=== PATIENT | female | born 1975 | race Caucasian/White ===

== ENCOUNTER 2017-12-10 09:18 | Emergency (ER) | END 2017-12-10 12:10 | disposition home or self-care (01) ==

== ENCOUNTER 2017-12-16 13:50 | Emergency (ER) | END 2017-12-16 15:21 | disposition home or self-care (01) ==

== ENCOUNTER 2018-11-11 11:10 | Emergency (ER) | payer MEDICAID ==
[~2018-11-11] VITALS: Wt 62.3 kg
[~2018-11-11 11:10] MED LIST: CEPH-443 PO; CYCL10TA7 PO; FERR325C PO; IBUP-1542 PO; IBUP-1544 PO; NAPR-985 PO; PERCOCET PO; PHEN-538 PO; PRENAT PO
[2018-11-11 11:12] VITALS: BP 120/80; PULSE 80; RESP 20
[2018-11-11] MEDS ORDERED: HYDR-843 PO (11:59)
[2018-11-11] MEDS ORDERED: ACET500C5 PO (11:59)
[2018-11-11] MEDS ORDERED: FLUT9.9S NASAL (11:59)
[2018-11-11] MEDS ORDERED: AZIT250T PO (11:59)
--- NOTE | 2018-11-11 12:13 | ERD ---
ER Documentation Chief Complaint Chief Complaint jerel henry frontal pressure HPI 42-year-old female patient with no significant past medical history presents to ED complaining of a pressure-like sensation in her sinuses that started for about 2.5 weeks. States that she is tried taking Benadryl, Tylenol with slight relief however still feels like her nose is congested. Denies any chest pain, shortness of breath, nausea, vomiting, diarrhea, neck stiffness. Patient is eating appropriately, tolerating oral intake, has normal bowel movements and good urine output. Also reports that she has some itchiness to her skin, states that she did have some rashes however it has now resolved. States that she tried taking Benadryl and it helped slightly. ROS All systems reviewed and are negative except as per history of present illness. Medications Home Meds Active Scripts Acetaminophen* (Tylophen*) 500 Mg Capsule, 1 CAP PO Q6H PRN for PAIN AND OR ELEVATED TEMP, #20 CAP Prov:ABRAHAM JAMES PA-C 11/11/18 Fluticasone Propionate (Flonase Allergy Relief) 9.9 Ml [place].susp, 1 SPRAY NASAL BID, #1 BOTTLE TO EACH NOSTRIL Prov:ABRAHAM JAMES PA-C 11/11/18 Azithromycin* (Zithromax*) 250 Mg Tablet, 250 MG PO .ZPACK DIRECTED, #6 TAB TAKE 500 MG (2 TABS) THE FIRST DAY THEN 250 MG (1 TAB) DAYS 2-5 Prov:ABRAHAM JAMES PA-C 11/11/18 Hydroxyzine Hcl* (Hydroxyzine Hcl*) 25 Mg Tablet, 25 MG PO Q8H PRN for ITCHING, #30 TAB Prov:ABRAHAM JAMES PA-C 11/11/18 Phenazopyridine Hcl* (Pyridium*) 200 Mg Tab, 200 MG PO TID PRN for URINARY PAIN, #6 TAB Prov:CHAVO MARTINEZ MD 12/16/17 Cephalexin* (Keflex*) 500 Mg Capsule, 500 MG PO QID for 5 Days, CAP Prov:CHAVO MARTINEZ MD 12/16/17 Ibuprofen* (Motrin*) 600 Mg Tab, 600 MG PO Q6H PRN for PAIN AND OR ELEVATED TEMP, #30 TAB Prov:ROSALBA OLIVER 12/10/17 Cyclobenzaprine Hcl* (Cyclobenzaprine Hcl*) 10 Mg Tablet, 10 MG PO Q12 PRN for MUSCLE SPASMS, #20 TAB Prov:ROSALBA OLIVER 12/10/17 Naproxen* (Naprosyn*) 500 Mg Tablet, 500 MG PO BID PRN for PAIN AND/OR INFLAMMATION, #30 TAB Prov:BRADEN GEE PA-C 05/23/16 Oxycodone Hcl/Acetaminophen (Percocet) 1 Tab Tab, 2 TAB PO Q4H PRN for PAIN LEVEL 6-10, #30 TAB 0 Refills Prov:SEPIDEH GILLIS MD 09/24/15 Ibuprofen* (Ibuprofen*) 800 Mg Tab, 800 MG PO Q8, #20 TAB 0 Refills Prov:SEPIDEH GILLIS MD 09/24/15 Reported Medications Ferrous Sulfate (Iron) 325 Mg Capsr, 325 MG PO DAILY 05/20/15 Multivit/Min/Fol Ac/Iron/Pren* ( S*) 1 Tab Tab, 1 TAB PO DAILY, TAB 05/20/15 Allergies Allergies: Coded Allergies: Penicillins (Verified Allergy, Unknown, 05/23/16) PMhx/Soc History of Surgery: Yes (csect, gallbladder, appy) Anesthesia Reaction: No Hx Neurological Disorder: No Hx Respiratory Disorders: No Hx Cardiac Disorders: No Hx Psychiatric Problems: No Hx Miscellaneous Medical Probl: No Hx Alcohol Use: No Hx Substance Use: No Hx Tobacco Use: No Smoking Status: Never smoker FmHx Family History: No diabetes, No coronary disease Physical Exam Vitals Vital Signs Date Temp Pulse Resp B/P (MAP) Pulse Ox O2 O2 Flow FiO2 Time Delivery Rate 11/11/18 98.3 80 20 120/80 98 11:12 (93) Physical Exam Const: [id number], well-nourished. In no acute distress. Head: Atraumatic, normocephalic. No hematoma. No seth sign. Tenderness to palpation of the bilateral maxillary sinuses. Eyes: Normal Conjunctiva without injection. No purulent discharge. PERRLA. EOMI ENT: Normal external ear. Ear canal without erythema. Tympanic membrane pearly hanson without effusion or bulging. Nasal canal clear with normal turbinates. Moist oropharynx without tonsillar exudates. Non-erythematous pharynx. Uvula midline. No drooling. No trismus. Neck: No cervical midline tenderness. Full range of motion. No meningismus. No cervical lymphadenopathy. No JVD. Resp: Clear to auscultation bilaterally. No wheezing, rhonchi, rales, or crackles. No accessory muscle use. No retractions. Cardio: Regular rate and rhythm. No murmurs, rubs or gallops. Abd: Soft, non tender, non distended. Normal bowel sounds. No palpable masses. No rebound tenderness. No guarding. Negative McBurney's Point. Negative Briggs's Sign. Skin: Normal skin turgor. No petechiae or rashes Back: No midline tenderness. No CVA tenderness. Ext: No cyanosis, or edema. Distal pulses intact bilaterally. Neur: Awake and alert. Normal gait. Normal coordination. Cranial Nerves II- VII intact. Normal finger to nose. Muscle strength 5/5. Sensation intact. Psych: Normal Mood and Affect Procedures/MDM 42-year-old female patient with no significant past medical history presents ED complaining of sinus pressure that started about 2 and half weeks ago associated with nasal congestion. Patient is afebrile and nontoxic-appearing. Patient likely has sinusitis patient has tenderness palpation of the maxillary sinuses. Low suspicion for intracranial bleed, subarachnoid hemorrhage, meningitis, TIA, stroke, subdural hematoma, epidural hematoma, or other emergent conditions. Patient currently does not have any hives. Low suspicion for anaphylaxis, scabies, SJS/TEN, TSS, Lyme's Disease, syphilis, RMSF, shingles, d isseminated gonorrhea chlamydia, DIC, TTP, ITP, erythema multiforme, sepsis, cellulitis, necrotizing fasciitis, gangrene, meningococcemia, allergic contact dermatitis, urticaria, eczema, tinea infection, or other emergent conditions. Diagnosis: Sinus Pressure, Itchy skin, Nasal Congestion Discharge medications: Tylenol, Flonase, Zithromax Follow up with primary care physician in 1-2 days. Instructed patient to return to the ED sooner for any worsening symptoms. Patient's questions were answered. Patient is hemodynamically stable. Patient understood and agreed with discharge plan. Patient discharged stable. Disclaimer: Inadvertent spelling and grammatical errors are likely due to EHR/dictation software use and do not reflect on the overall quality of patient care. Also, please note that the electronic time recorded on this note does not necessarily reflect the actual time of the patient encounter. Departure Diagnosis: Primary Impression: Sinus pressure Additional Impressions: Itchy skin Nasal congestion Condition: Stable Patient Instructions: Hives, Sinusitis, Abx Tx Referrals: [facility] YOU HAVE RECEIVED A MEDICAL SCREENING EXAM AND THE RESULTS INDICATE THAT YOU DO NOT HAVE A CONDITION THAT REQUIRES URGENT TREATMENT IN THE EMERGENCY DEPARTMENT. FURTHER EVALUATION AND TREATMENT OF YOUR CONDITION CAN WAIT UNTIL YOU ARE SEEN IN YOUR DOCTORS OFFICE WITHIN THE NEXT 1-2 DAYS. IT IS YOUR RESPONSIBILITY TO MAKE AN APPOINTMENT FOR FOLOW-UP CARE. IF YOU HAVE A PRIMARY DOCTOR --you should call your primary doctor and schedule an appointment IF YOU DO NOT HAVE A PRIMARY DOCTOR YOU CAN CALL OUR PHYSICIAN REFERRAL HOTLINE AT IF YOU CAN NOT AFFORD TO SEE A PHYSICIAN YOU CAN CHOSE FROM THE FOLLOWING [facility] [address] [facility] [address] [facility] [address] [facility] [address] [facility] [address] [facility] [facility] [address] [facility]. [facility] YOU HAVE RECEIVED A MEDICAL SCREENING EXAM AND THE RESULTS INDICATE THAT YOU DO NOT HAVE A CONDITION THAT REQUIRES URGENT TREATMENT IN THE EMERGENCY DEPARTMENT. FURTHER EVALUATION AND TREATMENT OF YOUR CONDITION CAN WAIT UNTIL YOU ARE SEEN IN YOUR DOCTORS OFFICE WITHIN THE NEXT 1-2 DAYS. IT IS YOUR RESPONSIBILITY TO MAKE AN APPOINTMENT FOR FOLOW-UP CARE. IF YOU HAVE A PRIMARY DOCTOR --you should call your primary doctor and schedule and appointment IF YOU DO NOT HAVE A PRIMARY DOCTOR YOU CAN CALL OUR PHYSICIAN REFERRAL HOTLINE AT . IF YOU CAN NOT AFFORD TO SEE A PHYSICIAN YOU CAN CHOSE FROM THE FOLLOWING [facility] IN[facility]: [facility] [address] [place] [address] [facility] [address] [place] [address] [facility] [address] [place] [address] [facility] Additional Instructions: Call your primary care doctor TOMORROW for an appointment during the next 2-3 days.See the doctor sooner or return here if your condition worsens before your appointment time. ABRAHAM JAMES PA-C Nov 11, 2018 12:13
== END 2018-11-11 12:15 | disposition home or self-care (01) ==
LOC: FTE 11:10
DX: J32.9 Chronic sinusitis, unspecified (principal); L29.9 Pruritus, unspecified
CPT/HCPCS: 99283

== ENCOUNTER 2019-03-27 13:26 | Emergency (ER) | payer MEDICAID ==
[~2019-03-27] VITALS: Ht 154.9 cm; Wt 63.6 kg
[~2019-03-27 13:26] MED LIST changes: +ACET325T33 PO; +ACET500C5 PO; +AZIT250T PO; +FLUT9.9S NASAL; +HYDR-843 PO
[2019-03-27 13:47] VITALS: BP 91/62; PULSE 73; RESP 20; Ht 154.9 cm; Wt 63.6 kg
[2019-03-27] MEDS ORDERED: KETOROLAC 30 MG INJ IM STA (14:04)
[2019-03-27] MEDS ORDERED: CYCLOBENZAPRINE 10 MG TAB PO ONE (14:30)
== END 2019-03-27 14:53 | disposition home or self-care (01) ==
LOC: FTE 13:26
DX: M62.830 Muscle spasm of back (principal)
CPT/HCPCS: 81003; 81025; 96372; J1885; Z7502; Z7610

== ENCOUNTER 2019-03-31 13:35 | Emergency (ER) | payer MEDICAID ==
[~2019-03-31] VITALS: Wt 63.6 kg
[2019-03-31 13:37] VITALS: BP 97/58; PULSE 87; RESP 20
== END 2019-03-31 19:04 | disposition home or self-care (01) ==
LOC: FTE 13:35
DX: S33.5XXA Sprain of ligaments of lumbar spine, initial encounter (principal); X58.XXXA Exposure to other specified factors, initial encounter; Y92.9 Unspecified place or not applicable
CPT/HCPCS: 72100; 81003; 81025; Z7502